=== PATIENT | female | born 1980 | race Caucasian/White ===

== ENCOUNTER → 2018-05-20 | Emergency (ER) | END | disposition home or self-care (01) ==

== ENCOUNTER 2019-04-21 22:58 | Emergency (ER) | payer OTHER ==
[~2019-04-21] VITALS: Ht 170.2 cm; Wt 66.0 kg
[2019-04-21 23:00] VITALS: Ht 170.2 cm; Wt 66.0 kg
[2019-04-22] MEDS ORDERED: LORAZEPAM 2 MG INJ IV ONE (01:30)
--- NOTE | 2019-04-22 03:13 | ERD ---
ER Documentation Chief Complaint Chief Complaint CP X'S 1 HOUR. PT APPEARS VERY ANXIOUS AND REPORTS R ARM TINGLING HPI Is a 38-year-old female brought in by her suffering with chest pain for 1 hour. She said he appears very anxious and reports her right arm was tingling and she felt she actually felt very anxious. She denies any fevers chills nausea vomiting. Denies any shortness of breath. Denies any focal neurologic complai nts. Denies any other current issues. ROS All systems reviewed and are negative except as per history of present illness. Medications Home Meds No Active Prescriptions or Reported Meds Allergies Allergies: Coded Allergies: No Known Allergy (Unverified , 04/21/19) PMhx/Soc History of Surgery: Yes (Breast implants) Anesthesia Reaction: No Hx Neurological Disorder: No Hx Respiratory Disorders: No Hx Cardiac Disorders: No Hx Psychiatric Problems: No Hx Miscellaneous Medical Probl: No Hx Alcohol Use: Yes (ALCOHOL ADDICTION) Hx Substance Use: Yes (COCAINE) Smoking Status: Never smoker Physical Exam Vitals Vital Signs Date Temp Pulse Resp B/P (MAP) Pulse Ox O2 O2 Flow FiO2 Time Delivery Rate 04/22/19 97.0 85 20 166/90 100 Room Air 01:25 (115) 04/21/19 97.0 127 20 166/90 100 23:00 (115) Physical Exam Const: No acute distress Head: Atraumatic Eyes: Normal Conjunctiva ENT: Normal External Ears, Nose and Mouth. Neck: Full range of motion. No meningismus. Resp: Clear to auscultation bilaterally Cardio: Regular rate and rhythm, no murmurs Abd: Soft, non tender, non distended. Normal bowel sounds Skin: No petechiae or rashes Back: No midline or flank tenderness Ext: No cyanosis, or edema Neur: Awake and alert Psych: Normal Mood and Affect Result Diagram: 04/22/19 0130 04/22/19 013 Results 24 hrs Laboratory Tests Test 04/22/19 01:30 White Blood Count 7.2 10^3/ul Red Blood Count 4.78 10^6/ul Hemoglobin 15.0 g/dl Hematocrit 43.8 % Mean Corpuscular Volume 91.6 fl Mean Corpuscular Hemoglobin 31.4 pg Mean Corpuscular Hemoglobin Concent 34.2 g/dl Red Cell Distribution Width 13.0 % Platelet Count 210 10^3/UL Mean Platelet Volume 9.2 fl Immature Granulocytes % 0.400 % Neutrophils % 75.6 % Lymphocytes % 13.6 % Monocytes % 9.5 % Eosinophils % 0.3 % Basophils % 0.6 % Nucleated Red Blood Cells % 0.0 /100WBC Immature Granulocytes # 0.030 10^3/ul Neutrophils # 5.4 10^3/ul Lymphocytes # 1.0 10^3/ul Monocytes # 0.7 10^3/ul Eosinophils # 0.0 10^3/ul Basophils # 0.0 10^3/ul Nucleated Red Blood Cells # 0.0 10^3/ul Urine Color YELLOW Urine Clarity CLEAR Urine pH 7.0 Urine Specific [place] 1.021 Urine Ketones 2+ mg/dL Urine Nitrite NEGATIVE mg/dL Urine Bilirubin NEGATIVE mg/dL Urine Urobilinogen NEGATIVE mg/dL Urine Leukocyte Esterase NEGATIVE Amber/ul Urine Microscopic RBC 3 /HPF Urine Microscopic WBC 2 /HPF Urine Mucus FEW /HPF Urine Hemoglobin NEGATIVE mg/dL Urine Glucose NEGATIVE mg/dL Urine Total Protein 1+ mg/dl Sodium Level 140 mmol/L Potassium Level 3.9 mmol/L Chloride Level 101 mmol/L Carbon Dioxide Level 24 mmol/L Anion Gap 15 Blood Urea Nitrogen 14 mg/dl Creatinine 0.68 mg/dl Est Glomerular Filtrat Rate mL/min > 60 mL/min Glucose Level 70 mg/dl Calcium Level 9.8 mg/dl Total Bilirubin 2.3 mg/dl Direct Bilirubin 0.00 mg/dl Indirect Bilirubin 2.3 mg/dl Aspartate Amino Transf (AST/SGOT) 45 IU/L Alanine Aminotransferase (ALT/SGPT) 38 IU/L Alkaline Phosphatase 84 IU/L Troponin I < 0.012 ng/ml B-Type Natriuretic Peptide 19 PG/ML Total Protein 8.6 g/dl Albumin 5.1 g/dl Globulin 3.50 g/dl Albumin/Globulin Ratio 1.45 Current Medications Medications Dose Sig/Ramirez Start Time Status Last (Trade) Ordered Route PRN Stop Time Admin Dose Reason Admin Lorazepam 1 mg ONCE ONCE 04/22/19 DC 04/22/19 (Ativan) IV 01:30 01:30 04/22/19 01:31 Procedures/MDM this is a very pleasant patient with atypivcal cp. likely anxiety related. no evidence of ischemia and no cardiac risk factors. stable for trial of outpatient management Departure Diagnosis: Primary Impression: Chest pain Chest pain type: unspecified Qualified Codes: R07.9 - Chest pain, unspecified Condition: Stable JIMMIE GRANGER Apr 22, 2019 03:13
[2019-04-22 03:23] VITALS: BP 144/100; PULSE 95; RESP 18
== END 2019-04-22 03:31 | disposition home or self-care (01) ==
LOC: E/R 22:58
DX: R07.9 Chest pain, unspecified (principal)
CPT/HCPCS: 36415; 71045; 80053; 81001; 83880; 84484; 85025; 93005; 96374; J2060; Z7502